=== PATIENT | female | born 1965 ===

== ENCOUNTER 2018-05-05 12:45 | Day surgery (SDC) | payer BC ==
[~2018-05-05] VITALS: Ht 170.2 cm; Wt 85.5 kg
[2018-05-05 13:03] VITALS: BP 137/84; PULSE 67; TEMP 97.5
[2018-05-05] MEDS ORDERED: LIPITOR 10MG10 MG PO (13:25)
[2018-05-05] MEDS ORDERED: LOPID 600M600 MG/TAB PO (13:25)
[2018-05-05] MEDS ORDERED: ASPIRIN 81M81 MG/TA2 PO (13:25)
[2018-05-05] MEDS ORDERED: MULTI VITAMINS1 TAB PO (13:26)
[2018-05-05] MEDS ORDERED: BIOTIN5000 MCG PO (13:26)
[2018-05-05] MEDS ORDERED: OSCAL 500 TAB500 MG PO (13:27)
[2018-05-05] MEDS ORDERED: VTAMINC250TA (13:27)
[2018-05-05] MEDS ORDERED: MASON NATURAL2000 IU (13:27)
[2018-05-05] MEDS ORDERED: LUTEIN20 M1 PO (13:28)
[2018-05-05 15:10] VITALS: BP 126/83; PULSE 71; TEMP 97.6
[2018-05-05 15:25] VITALS: BP 133/88; PULSE 61
[2018-05-05 15:40] VITALS: BP 140/78; PULSE 56
== END 2018-05-05 16:00 | disposition home or self-care (01) ==
LOC: SDCO 12:45
DX: D12.0 Benign neoplasm of cecum (principal); Z86.010 Personal history of colon polyps; C43.9 Malignant melanoma of skin, unspecified; Z80.0 Family history of malignant neoplasm of digestive organs; E78.00 Pure hypercholesterolemia, unspecified
CPT/HCPCS: J2704; J7030

== ENCOUNTER 2020-01-08 09:59 | Day surgery (SDC) | payer BC ==
[~2020-01-08] VITALS: Ht 170.2 cm; Wt 77.2 kg
[~2020-01-08 09:59] MED LIST: ASPIRIN 81M81 MG/TA2 PO; BIOTIN5000 MCG PO; LIPITOR 10MG10 MG PO; LOPID 600M600 MG/TAB PO; LUTEIN20 M1 PO; MASON NATURAL2000 IU; MULTI VITAMINS1 TAB PO; OSCAL 500 TAB500 MG PO; VTAMINC250TA
[2020-01-08 10:21] VITALS: BP 141/87; PULSE 58; TEMP 98.1
[2020-01-08] MEDS ORDERED: LIPITOR20 MG PO (10:52)
[2020-01-08] MEDS ORDERED: LOPID 600M600 MG/TAB PO (10:53)
[2020-01-08] MEDS ORDERED: ASPIRIN 81M81 MG/TA2 PO (10:53)
[2020-01-08] MEDS ORDERED: LUTEIN 15 MG-0.1 SGL PO (10:54)
[2020-01-08] MEDS ORDERED: MULTIPLE VITAMI1 TA5 PO (10:55)
[2020-01-08] MEDS ORDERED: MASON NATURAL2000 IU PO (10:56)
[2020-01-08] MEDS ORDERED: BIOTIN5000 MCG PO (10:56)
[2020-01-08] MEDS ORDERED: VTAMINC250TA PO (10:57)
[2020-01-08] MEDS ORDERED: CALCIUM 600MG+D1 TAB PO (10:59)
[2020-01-08 13:10] VITALS: BP 105/75; PULSE 60; TEMP 97.2
[2020-01-08 13:25] VITALS: BP 106/67; PULSE 60
[2020-01-08 13:40] VITALS: BP 114/77; PULSE 64
[2020-01-08 13:55] VITALS: BP 114/72; PULSE 56
== END 2020-01-08 14:20 | disposition home or self-care (01) ==
LOC: SDCO 09:59
DX: Z12.11 Encounter for screening for malignant neoplasm of colon (principal); E78.00 Pure hypercholesterolemia, unspecified; Z85.820 Personal history of malignant melanoma of skin; Z88.5 Allergy status to narcotic agent; Z90.49 Acquired absence of other specified parts of digestive tract; Z86.010 Personal history of colon polyps; Z80.0 Family history of malignant neoplasm of digestive organs
CPT/HCPCS: J2250; J3010; J7030

== ENCOUNTER 2021-12-21 20:33 | Emergency (ER) | payer BC ==
[~2021-12-21] VITALS: Ht 170.2 cm; Wt 88.6 kg
[~2021-12-21 20:33] MED LIST changes: +CALCIUM 600MG+D1 TAB PO; +LIPITOR20 MG PO; +LUTEIN 15 MG-0.1 SGL PO; +MASON NATURAL2000 IU PO; +MULTIPLE VITAMI1 TA5 PO; +VTAMINC250TA PO
[2021-12-21 20:43] VITALS: TEMP 98.7
[2021-12-21 21:56] VITALS: BP 162/80; PULSE 74
== END 2021-12-21 21:56 | disposition home or self-care (01) ==
LOC: COL.ER 20:33
DX: S52.502A Unspecified fracture of the lower end of left radius, initial encounter for closed fracture (principal); S52.612A Displaced fracture of left ulna styloid process, initial encounter for closed fracture; Z28.310 Unvaccinated for COVID-19; W01.0XXA Fall on same level from slipping, tripping and stumbling without subsequent striking against object, initial encounter; Y92.009 Unspecified place in unspecified non-institutional (private) residence as the place of occurrence of the external cause